=== PATIENT | female | born 1990 | race African-American/Black ===

== ENCOUNTER 2018-02-13 22:47 | Emergency (ER) | payer OTHER ==
[~2018-02-13] VITALS: Ht 175.3 cm; Wt 61.4 kg
[2018-02-13] MEDS ORDERED: ONDANSETRON HCL 4 MG ORAL DISINTEGRATING TAB SL ONE (23:45)
[2018-02-13] MEDS ORDERED: KETOROLAC TROMETHAMINE 60 MG/2 ML VIAL IM ONE (23:45)
[2018-02-14 00:36] VITALS: BP 131/8
== END 2018-02-14 00:38 | disposition home or self-care (01) ==
LOC: FSED 22:47
DX: G44.219 Episodic tension-type headache, not intractable (principal)
CPT/HCPCS: 99282; J1885

== ENCOUNTER 2024-12-09 19:38 | Emergency (ER) | payer BC, OTHER ==
[~2024-12-09] VITALS: Ht 172.7 cm; Wt 65.8 kg
[2024-12-09] MEDS ORDERED: TYLENOL325 MG PO (20:48)
[2024-12-09] MEDS ORDERED: IBUPROFEN600 MG PO (20:48)
[2024-12-09 21:37] VITALS: PULSE 66; RESP 19; TEMP 98.4
[2024-12-09 21:39] VITALS: BP 129/78; PULSE 78; RESP 19; TEMP 98.4; O2SAT 98
== END 2024-12-09 21:43 | disposition home or self-care (01) ==
LOC: FSED 19:41
DX: S43.491A Other sprain of right shoulder joint, initial encounter (principal); W18.2XXA Fall in (into) shower or empty bathtub, initial encounter; Y93.E1 Activity, personal bathing and showering; Y92.89 Other specified places as the place of occurrence of the external cause
CPT/HCPCS: 99284